=== PATIENT | female | born 1935 | race Caucasian/White ===

== ENCOUNTER → 2017-11-26 | Outpatient (CLI) | payer MEDICARE ==
--- NOTE | 2017-11-28 14:10 | PE ---
Nuclear medicine PET/CT HISTORY: Solitary pulmonary nodule, initial Patient received 10.4 mCi F-18 FDG intravenously in delayed scanning was performed from the skull bas e to the mid thighs. Localization and attenuation correction CT scan was also performed. Neck and chest: There is no evident cervical adenopathy. Extensive emphysematous changes are present within the lungs. Left upper lobe spiculated lung mass shows extension towards the left hilum and jesus sures approximately 3.3 cm. There is associated hypermetabolic uptake, SUV is 29. No pleural or peric ardial effusion. Pulmonary artery is dilated, consider pulmonary artery hypertension. There are coron carlito calcifications present. No mediastinal, axillary, or hilar adenopathy. Ascending aorta is dilated at 3.5 cm. Abdomen pelvis: There is no evident adrenal mass. No suspicious hypermetabolic uptake. Low dense focu s within the liver may represent cysts and measures approximately 2.3 cm. No retroperitoneal adenopat hy. Abdominal aortic aneurysm measures 4.5 cm. Osseous structures: Degenerative disc changes, facet arthropathy in the lower lumbar spine. There is 6 anterior rib on the left showing mild uptake, SUV 3.2, possible prior trauma. Arthropathy noted wit hin the shoulders. 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 Correlate for pulmonary a rtery hypertension. Aortic aneurysm as described abdomen, descending aortic measurement as above. Add itional findings above.
== END | disposition home or self-care (01) ==
LOC: RADPETMAIN 12:03
PROVIDERS: ATTEND Internal Medicine Critical Care Medicine
DX: I71.4 Abdominal aortic aneurysm, without rupture (principal)
CPT/HCPCS: 78815; A9552

== ENCOUNTER 2018-07-16 23:08 | Observation (INO) | payer MEDICARE, OTHER ==
[2018-07-16] MEDS ORDERED: IPRATROPIUM-ALBUTEROL 3 ML NEB INHALATION STA (23:32)
--- NOTE | 2018-07-16 23:32 | ED ---
SOB HPI - General Stated Complaint: coughing up blood Time Seen by Provider: 07/16/18 23:08 Source: patient, RN/MD, EMS, RN notes reviewed Mode of arrival: EMS - History of Present Illness Initial Comments: This is a 83-year-old female history of lung lung cancer emphysema among other medical problems who started having hemoptysis today. She's been coughing up dark and some bright red blood is unknown today. She has exertional dyspnea but is normally a 4 L of oxygen anyway. She was seen at [facility] and transferred here for evaluation. She has any fevers chills or sweats she is on anticoagulation for atrial fibrillation. She has a follow-up a shot glass earlier this afternoon. No chest or abdominal pain MD Complaint: shortness of breath, cough - Related Data Home Medications Medication Instructions Recorded Confirmed Albuterol Inhaler [Ventolin Hfa 2 puff INHALATION Q6H PRN 09/01/15 09/01/15 Inhaler] Enalapril [Vasotec] 20 mg PO DAILY 09/01/15 09/01/15 LORazepam [Ativan] 0.25 mg PO HS PRN 09/01/15 09/01/15 Levothyroxine Sodium [Synthroid] 75 mcg PO DAILY 09/01/15 09/01/15 Loratadine [Claritin] 10 mg PO HS 09/02/15 09/02/15 Previous Rx's Medication Instructions Recorded Acetaminophen Tab [Tylenol] 650 mg PO Q6HR PRN #0 tab 09/06/15 Albuterol Nebulized (Conc) 2.5 mg INHALATION QID #120 neb 09/06/15 [Ventolin Nebulized (Conc)] Budesonide/Formoterol Fumarate 1 puff IH BID #1 hfa.aer.ad 09/06/15 [Symbicort 160-4.5 Mcg Inhaler] Edoxaban Tosylate [Savaysa] 30 mg PO DAILY #0 tablet 09/06/15 Flecainide [Tambocor] 50 mg PO Q12H #60 tab 09/06/15 Ipratropium Nebulized [Atrovent 0.5 mg INHALATION RT-QID #120 nebu 09/06/15 Nebulized 0.2 MG/ML] Levofloxacin [Levaquin] 500 mg PO Q24H #7 tab 09/06/15 predniSONE 10 mg PO DIRECTED #30 tab 09/06/15 Allergies Allergy/AdvReac Type Severity Reaction Status Date / Time levofloxacin [From Levaquin] Allergy Itching Verified 07/16/18 23:25 Review of Systems ROS Statement: Those systems with pertinent positive or pertinent negative responses have been documented in the HPI. ROS Other: All systems not noted in ROS Statement are negative. Past Medical History Past Medical History: COPD, Hypertension, Osteoarthritis (OA) Additional Past Medical History / Comment(s): Hyperlipidemia, emphaseama, hypothyroid,glaucoma History of Any Multi-Drug Resistant Organisms: None Reported Additional Past Surgical History / Comment(s): bilat cataract repair Past Anesthesia/Blood Transfusion Reactions: No Reported Reaction Past Psychological History: No Psychological Hx Reported Smoking Status: Former smoker - Past Family History Father Family Medical History: Liver Disease Mother Family Medical History: Coronary Artery Disease (CAD) General Exam - General Exam Comments Initial Comments: This is a well-developed asthenic appearing awake alert oriented 3 female General appearance: alert, in no apparent distress Head exam: Present: atraumatic, normocephalic, normal inspection Eye exam: Present: normal appearance, PERRL, EOMI. Absent: scleral icterus, conjunctival injection, periorbital swelling ENT exam: Present: normal exam, mucous membranes moist Neck exam: Present: normal inspection. Absent: tenderness, meningismus, lymphadenopathy Respiratory exam: Present: wheezes, decreased breath sounds. Absent: respiratory distress, rales, rhonchi, stridor Cardiovascular Exam: Present: regular rate, normal rhythm, normal heart sounds. Absent: systolic murmur, diastolic murmur, rubs, gallop, clicks GI/Abdominal exam: Present: soft, normal bowel sounds. Absent: distended, tenderness, guarding, rebound, rigid Extremities exam: Present: normal inspection, full ROM, normal capillary refill. Absent: tenderness, pedal edema, joint swelling, calf tenderness Back exam: Present: normal inspection Neurological exam: Present: alert, oriented X3, CN II-XII intact Psychiatric exam: Present: normal affect, normal mood Skin exam: Present: warm, dry, intact, normal color. Absent: rash Course Vital Signs 07/16/18 23:19 Temperature 97.9 F Pulse Rate 90 Respiratory 18 Rate Blood Pressure 148/74 O2 Sat by Pulse 94 L Oximetry Medical Decision Making - Medical Decision Making I did discuss the findings with Dr. Montaño who was in the emergency department patient will be admitted with consultation to Dr. Field. Patient currently hemodynamically stable. - Radiology Data Radiology results: image reviewed (I did review the CAT scan was supplied by EMS patient does demonstrate a left lung mass is noted please see complete report) Disposition Clinical Impression: Hemoptysis, Acute exacerbation of emphysema, Lung cancer Disposition: ADMITTED IP TO THIS [facility] Condition: Serious Referrals: Richie Crow DO [Primary Care Provider] - 1-2 days
[2018-07-16] MEDS ORDERED: ACETAMINOPHEN TAB 325 MG TAB PO PRN (23:45)
[2018-07-17] MEDS: SODIUM CHLORIDE 0.9% 1,000 ML IV SCH ×2 (00:17→11:39)
[2018-07-17] MEDS: methylPREDNISolone SOD SUCCI 125 MG/2 ML VIAL IV SCH ×4 (00:17→20:22)
[2018-07-17] MEDS: IPRATROPIUM-ALBUTEROL 3 ML NEB INHALATION SCH ×7 (00:55→23:06)
[2018-07-17] MEDS ORDERED: LORazepam 0.5 MG TAB PO PRN (01:00)
[2018-07-17] MEDS: FLECAINIDE 50 MG TAB PO SCH ×2 (01:29→23:51)
[2018-07-17] MEDS: LISINOPRIL 20 MG TAB PO SCH (09:42)
[2018-07-17] MEDS ORDERED: HYDROcodone/APAP 5-325MG 1 EACH TAB PO PRN (09:59)
--- NOTE | 2018-07-17 10:49 | HP ---
HISTORY AND PHYSICAL DATE OF SERVICE: 07/16/2018 CHIEF COMPLAINT: Hemoptysis. HISTORY OF PRESENT ILLNESS: This 83-year-old woman with a past medical history of multiple medical problems including COPD, hypertension, DJD, hyperlipidemia, history of hypothyroidism, glaucoma was being followed by Dr. Field and Dr. Neil also. The patient was found to have left-sided lung mass. Apparently patient was complaining of hemoptysis multiple episodes. Patient came to [facility] and was admitted for further evaluation and treatment. There is no history of fever, rigors or chills. No history of headache, loss of consciousness, seizures at this time. The patient was seen in [facility] and referred to [facility]. PAST MEDICAL HISTORY: History of COPD, hypertension, DJD, history of hyperlipidemia. MEDICATIONS: Medications prior to admission home medications are: 1. Prednisone 10 mg p.r.n. 2. Claritin 10 mg q.h.s. 3. Synthroid 75 mcg daily. 5. Ativan 0.25 mg q.h.s. p.r.n. 6. Atrovent 0.5 q.i.d. 7. Tambocor 50 mg b.i.d. 8. Vasotec 20 mg p.o. daily. 9. Savaysa 30 mg p.o. daily. 10.Symbicort one p.o. b.i.d. 11.Ventolin 2.5 q.i.d. 13.Tylenol p.r.n. ALLERGIES: Allergies are LEVAQUIN. FAMILY HISTORY: Liver disease in the family. SOCIAL HISTORY: Previous history of smoking. No history of current smoking or alcohol intake. REVIEW OF SYSTEMS: ENT: No diminished hearing or diminished vision. CARDIOVASCULAR SYSTEM: As mentioned earlier. RESPIRATORY SYSTEM: As mentioned earlier. GI: No nausea. : No dysuria. NERVOUS SYSTEM: No numbness or weakness. ALLERGY/IMMUNOLOGY: No history of asthma, hayfever. MUSCULOSKELETAL: As mentioned earlier. HEMATOLOGY/ONCOLOGY: As mentioned earlier. ENDOCRINE: As mentioned earlier. CONSTITUTIONAL: As mentioned earlier. DERMATOLOGY: Negative. RHEUMATOLOGY: Negative. PSYCHIATRY; As mentioned earlier. PHYSICAL EXAMINATION: The patient is alert and oriented x3. Pulse is 75, blood pressure 137/88, respiration 20, temperature 98.1, pulse ox 96% on 4 L. HEENT: Conjunctivae normal. Oral mucosa moist. Neck is no jugular venous distention. No carotid bruit. No lymph node enlargement. CARDIOVASCULAR: S1, S2 muffled. RESPIRATORY; Breath sounds are diminished at the bases. A few scattered rhonchi and crackles. ABDOMEN: Soft, nontender. No mass palpable. LEGS: No edema. No swelling. NERVOUS SYSTEM: Higher functions as mentioned earlier. Moves all 4 limbs. No focal motor or sensory deficits. LYMPHATICS: No lymphadenopathy of the neck, axillae or groin. SKIN: No ulcer, rash or bleeding. JOINTS: No active deforming arthropathy. LABS: Current labs are awaited. ASSESSMENT: 1. Hemoptysis for evaluation possible from left-sided lung cancer. 2. Chronic obstructive pulmonary disease. 3. Hypertension. 4. Degenerative joint disease. 5. Hyperlipidemia. 6. Emphysema. 7. Hypothyroidism. 8. Glaucoma. 9. History of paroxysmal atrial fibrillation. 10.History of chronic obstructive pulmonary disease. 11.History of bilateral pulmonary embolism in 2000. RECOMMENDATIONS AND DISCUSSION: In this 83-year-old woman who presented with multiple complex medical issues, we will monitor the patient closely, symptomatic treatment. Otherwise, we will closely monitor with Dr. Neil, bronchodilators, steroids have been initiated. Guarded prognosis because of multiple complex medical issues. Further recommendations to follow. See orders for further details. Home medications were resumed. MMODL / IJN: [id number] / MTDD
[2018-07-17 12:58] LABS: Basophils % (A) 0 %; Eosinophils % (A) 0 %; HCT 37.5 % (34.0-46.0); HGB 11.3 gm/dL (11.4-16.0); Hypochromasia Marked; Lymphocytes # (A) 0.4 k/uL (1.0-4.8); Lymphocytes % (A) 3 %; MCH 30.9 pg (25.0-35.0); MCHC 30.2 g/dL (31.0-37.0); MCV 102.5 fL (80.0-100.0); Macrocytosis Slight; Monocytes # (A) 0.2 k/uL (0-1.0); Monocytes % (A) 2 %; Neutrophils # (A) 10.4 k/uL (1.3-7.7); Neutrophils % (A) 95 %; Platelet Count 200 k/uL (150-450); RBC 3.66 m/uL (3.80-5.40)
[2018-07-17 13:08] LABS: Anion Gap 5 mmol/L; Blood Urea Nitrogen 26 mg/dL (7-17); Calcium 9.3 mg/dL (8.4-10.2); Chloride 97 mmol/L (98-107); Glucose 165 mg/dL (74-99); Potassium 4.2 mmol/L (3.5-5.1); Sodium 142 mmol/L (137-145)
[2018-07-17 13:20] LABS: Carbon Dioxide 40 mmol/L (22-30)
--- NOTE | 2018-07-17 15:10 | P.CNPUL ---
History of Present Illness Consult date: 07/17/18 Requesting physician: Carolynn Montaño Reason for consult: abnormal CXR/CT, other Chief complaint: Hemoptysis, severe COPD, left upper lobe lung mass History of present illness: This is a 83-year-old off white female patient of Dr. Crow, with past medical history of severe COPD, emphysema, left upper lobe lung mass, who was transferred from [facility] to the [facility] on 07/16/2018 with complaints of hemoptysis that started on Tuesday. Patient has been coughing up dark and some bright red blood. Was having some increased exertional dyspnea. Patient denied any fever or chills, denied sweats, she was having some phlegm production mixed in with blood in her sputum. Patient is on Eliquis for history of atrial fibrillation. Denied any chest pain or abdominal pain, no nausea or vomiting. Patient follows with Dr. Terrell in the pulmonary clinic for her history of severe COPD, baseline FEV1 of 0.89 L or 39% of predicted, and diffusion abnormality of 26%. Patient has history of hypoxemic respiratory failure related to COPD. Patient was hospitalized in October 2017 at one of the [facility] hospitalist for 3 days for COPD exacerbation. Computed tomography scan was done and revealed 1.4 cm nodule in the left upper lobe. Patient had a PET scan that was highly suspicious for bronchogenic carcinoma in the left upper lobe, this showed a left upper lobe spiculated lung mass with extension towards the left hilum measuring approximately 3.3 cm with associated hypermetabolic uptake with SUV of 29. No mediastinal, axillary or hilar adenopathy, no suspicious hypermetabolic uptake within the abdomen or pelvis. No significant uptake in the osseous structures. Because of her poor lung function patient was not deemed to be a good candidate for navigational bronchoscopy and general anesthesia. Possibility of external beam radiation without the tissue diagnosis was discussed with her, and patient decided not to pursue any treatment, related to poor lung function and severe limitation of her functional ability on the day today basis. Other medical history positive for hypertension, osteoarthritis, hypothyroidism, former smoking history. CT angios of the chest completed at an outside facility showed the left upper lobe mass that has significantly increased in size, no evidence of pulmonary embolism , no evidence of pulmonary infiltrates. Vital signs are stable, she is on 4 L per nasal cannula and this is what she wears at home her pulse ox is 97% hemodynamically stable, lab work has been reviewed, showed white blood cell count of 11.0, hemoglobin of 11.3, sodium is 142, potassium is 4.2, chloride is 97, CO2 is 40, BUN is 26 creatinine 0.66. She denies any fever, rigors or chills. Not significantly bronchospastic on today's exam, a few scattered rhonchi and crackles. Patient is calm and comfortable, resting in bed. We were asked to see this patient in evaluation for hemoptysis. Review of Systems All systems: negative Constitutional: Denies chills, Denies fever Eyes: denies blurred vision, denies pain Ears, nose, mouth and throat: Denies headache, Denies sore throat Cardiovascular: Denies chest pain, Denies shortness of breath Respiratory: Reports hemoptysis, Denies cough Gastrointestinal: Denies abdominal pain, Denies diarrhea, Denies nausea, Denies vomiting Genitourinary: Denies dysuria, Denies hematuria Musculoskeletal: Denies myalgias Integumentary: Denies pruritus, Denies rash Neurological: Denies numbness, Denies weakness Psychiatric: Denies anxiety, Denies depression Endocrine: Denies fatigue, Denies weight change Past Medical History Past Medical History: COPD, Hypertension, Osteoarthritis (OA) Additional Past Medical History / Comment(s): Hyperlipidemia, emphaseama, hypothyroid,glaucoma History of Any Multi-Drug Resistant Organisms: None Reported Additional Past Surgical History / Comment(s): bilat cataract repair Past Anesthesia/Blood Transfusion Reactions: No Reported Reaction Past Psychological History: No Psychological Hx Reported Smoking Status: Former smoker Past Alcohol Use History: None Reported Past Drug Use History: None Reported - Past Family History Father Family Medical History: Liver Disease Mother Family Medical History: Coronary Artery Disease (CAD) Medications and Allergies Home Medications Medication Instructions Recorded Confirmed Type Albuterol Inhaler [Ventolin Hfa 2 puff INHALATION RT-Q6H PRN 09/01/15 07/17/18 History Inhaler] Flecainide [Tambocor] 50 mg PO Q12H #60 tab 09/06/15 07/17/18 Rx Albuterol Nebulized [Ventolin 2.5 mg INHALATION RT-TID 07/17/18 07/17/18 History Nebulized] Apixaban [Eliquis] 5 mg PO BID 07/17/18 07/17/18 History Bumetanide [Bumex] 1 mg PO BID 07/17/18 07/17/18 History Enalapril [Vasotec] 10 mg PO DAILY 07/17/18 07/17/18 History Levothyroxine Sodium [Synthroid] 88 mcg PO DAILY 07/17/18 07/17/18 History predniSONE 5 mg PO DAILY 07/17/18 07/17/18 History Allergies Allergy/AdvReac Type Severity Reaction Status Date / Time levofloxacin [From Levaquin] Allergy Itching Verified 07/17/18 10:13 Physical Exam Vitals: Vital Signs Temp Pulse Pulse Resp BP BP Pulse Ox 07/17/18 12:03 97.6 F 79 18 131/78 97 07/17/18 12:02 80 07/17/18 11:49 76 07/17/18 08:45 80 07/17/18 08:32 72 98 07/17/18 05:00 98.1 F 75 20 137/88 96 07/17/18 03:35 18 07/17/18 03:31 92 07/17/18 03:22 88 07/17/18 00:53 98.2 F 85 20 122/75 96 07/17/18 00:34 98.0 F 88 18 140/82 96 07/17/18 00:33 18 07/17/18 00:28 94 07/17/18 00:14 90 07/16/18 23:19 97.9 F 90 18 148/74 94 L Intake and Output 07/16/18 07/17/18 07/17/18 22:59 06:59 14:59 Intake Total 660 Balance 660 Intake: Intake, IV Titration 240 Amount Sodium Chloride 0.9% 1, 240 000 ml @ 80 mls/hr IV . [id number] [facility] Rx#:[id number] Oral 420 Other: Voiding Method Bedside Commode # Voids 1 Weight 100.244 kg GENERAL EXAM: Alert, pleasant, 83-year-old white female on 4 L per nasal cannula with a pulse ox of 97% comfortable in no apparent distress. HEAD: Normocephalic/atraumatic. EYES: Normal reaction of pupils, equal size. Conjunctiva pink, sclera white. NOSE: Clear with pink turbinates. THROAT: No erythema or exudates. NECK: No masses, no JVD, no thyroid enlargement, no adenopathy. CHEST: No chest wall deformity. Symmetrical expansion. LUNGS: Equal air entry with diminished breath sounds, a few scattered rhonchi, no significant wheezes. CVS: Regular rate and rhythm, normal S1 and S2, no gallops, no murmurs, no rubs ABDOMEN: Soft, nontender. No hepatosplenomegaly, normal bowel sounds, no guarding or rigidity. EXTREMITIES: No clubbing, no edema, no cyanosis, 2+ pulses and upper and lower extremities. MUSCULOSKELETAL: Muscle strength and tone normal. SPINE: No scoliosis or deformity SKIN: No rashes CENTRAL NERVOUS SYSTEM: Alert and oriented -3. No focal deficits, tone is normal in all 4 extremities. PSYCHIATRIC: Alert and oriented -3. Appropriate affect. Intact judgment and insight. Results - Laboratory Findings CBC and BMP: 07/17/18 12:30 07/17/18 12:30 Abnormal lab findings: Abnormal Labs 07/17/18 07/17/18 12:30 12:30 WBC 11.0 H RBC 3.66 L Hgb 11.3 L MCV 102.5 H MCHC 30.2 L Neutrophils # 10.4 H Lymphocytes # 0.4 L Chloride 97 L Carbon Dioxide 40 H BUN 26 H Glucose 165 H - Diagnostic Findings CT scan - chest: report reviewed, image reviewed Assessment and Plan Plan: Assessment: #1. Hemoptysis related to oral anticoagulation and left upper lung mass, suspicious for bronchogenic carcinoma. The mass was first found back in October 2017 during a hospitalization for COPD at an outside facility. PET scan on 11/2017 showed left upper lobe spiculated lesion with extension towards the left hilum measuring 3.3 cm hypermetabolic uptake with SUV of 29%, there was no other suspicious hypermetabolic uptake in the abdomen, pelvis or the osseous structures. A tissue diagnosis was not obtained related to patient being a poor candidate for navigational bronchoscopy general anesthesia, or fine-needle aspirate, was related to patient's poor lung function. Patient and her family decided not to medical treatment for the left upper lobe mass. CTA chest was completed at [facility] in 07/16/2018 was negative for any discrete pulmonary embolus, showed left upper lobe lung mass consistent with reported malignancy which seems to have significantly increased in size, no pneumothorax or pleural effusions were noted, no pulmonary infiltrates. #2. Chronic hypoxemic respiratory failure related to severe COPD, normally wears 4 L of oxygen at home 2 #3. Stage III COPD, with a baseline FEV1 of 0.89 L or 39% of predicted #4. Previous episodes of pneumonia #5. Hypertension #6. Hypothyroidism #7. Abdominal aortic aneurysm #8. Chronic atrial fibrillation on Eliquis #9. Osteoarthritis #10. Former smoker Plan: We'll continue holding Eliquis. Patient's COPD is stable, no further episodes of hemoptysis today, no worsening shortness of breath, no chest pain. We did review his CT angios of the chest completed at the outside facility and compared it to the previous PET scan done in October 2017 and it does appear that the left upper lobe mass has increased in size, there was no evidence of pulmonary embolus, no pulmonary infiltrates. Patient follows with Dr. Field, and the family and the patient has opted to not pursue any treatment including stereotactic radiation for the left upper lobe mass, in view of poor lung function. continue nebulized bronchodilators. Patient has no fever or chills, no significant leukocytosis, not significantly congested. There is no further episodes of hemoptysis, and patient remains stable she can be considered for discharge home today or tomorrow I performed a history & physical examination of the patient and discussed their management with my nurse practitioner, Jade Cueto. I reviewed the nurse practitioner's note and agree with the documented findings and plan of care. Lung sounds are positive for diminished sounds with a few scattered rhonchi. The findings and the impression was discussed with the patient. I attest to the documentation by the nurse practitioner. Time with Patient: Greater than 30
--- NOTE | 2018-07-17 19:54 | PN ---
PROGRESS NOTE DATE OF SERVICE: 07/17/2018 This 83-year-old woman was admitted with hemoptysis, also has history of lung cancer, for which workup was deferred because of the patient's other multiple complex medical issues, at this time. The patient is being treated with bronchodilators and steroids. No chest pain. No palpitations. No fever. Hemoptysis is decreasing at this time. EXAM: Alert and oriented x2. Pulse 79. Blood pressure 131/70, respiration 18, temperature 97.6, pulse ox 97% on 4 L. HEENT is conjunctivae normal. Neck is no jugular venous distention. Cardiovascular: S1, S2 muffled. RESPIRATORY: Breath sounds diminished in the bases. Bilateral scattered rhonchi and crackles. Abdomen is soft, nontender. Legs are no edema, no swelling. LABS: WBC 11, hemoglobin 11.3, MCV 102. ASSESSMENT: 1. Hemoptysis for evaluation possibly from left-sided lung cancer. 2. Chronic obstructive pulmonary disease. 3. Hypertension. 4. Anemia, blood loss anemia. 5. Degenerative joint disease. 6. Hyperlipidemia. 7. Emphysema. 8. Hypothyroidism. 9. Glaucoma. 10.Paroxysmal atrial fibrillation. 11.History of chronic obstructive pulmonary disease. 12.History of bilateral pulmonary embolism in 2000. RECOMMENDATIONS AND DISCUSSION: I recommend to continue current medication, continue to monitor. Symptomatic treatment. Otherwise, the patient has stage III COPD. The patient has been having outpatient workup including PET scans. The patient is thought to be a poor candidate for even bronchoscopy at this time. The most recent CTA was negative for pulmonary embolism. Conservative line of management will be continued. Nebulized bronchodilators continue. The prognosis guarded. Further recommendations to follow. Closely follow with Pulmonary. MMODL / IJN: [id number] /
[2018-07-17] MEDS ORDERED: LORATADINE 10 MG TAB PO SCH (21:00)
[2018-07-18] MEDS: methylPREDNISolone SOD SUCCI 125 MG/2 ML VIAL IV SCH ×3 (00:20→13:10)
[2018-07-18] MEDS: SODIUM CHLORIDE 0.9% 1,000 ML IV SCH ×2 (02:51→15:07)
[2018-07-18] MEDS: IPRATROPIUM-ALBUTEROL 3 ML NEB INHALATION SCH ×4 (03:04→16:16)
[2018-07-18] MEDS ORDERED: PANTOPRAZOLE 40 MG TABLET PO SCH (07:30)
[2018-07-18 07:49] VITALS: RESP 16
[2018-07-18] MEDS: LISINOPRIL 20 MG TAB PO SCH (09:04)
[2018-07-18] MEDS ORDERED: LEVOTHYROXINE 88 MCG TAB PO SCH (09:45)
[2018-07-18 10:09] LABS: Basophils % (A) 0 %; Eosinophils % (A) 0 %; HCT 35.3 % (34.0-46.0); HGB 10.5 gm/dL (11.4-16.0); Hypochromasia Marked; Lymphocytes # (A) 0.3 k/uL (1.0-4.8); Lymphocytes % (A) 3 %; MCH 30.4 pg (25.0-35.0); MCHC 29.7 g/dL (31.0-37.0); MCV 102.6 fL (80.0-100.0); Macrocytosis Slight; Mean Platelet Volume 8.1; Monocytes # (A) 0.1 k/uL (0-1.0); Monocytes % (A) 1 %; Neutrophils # (A) 10.8 k/uL (1.3-7.7); Neutrophils % (A) 96 %; Platelet Count 203 k/uL (150-450); RBC 3.44 m/uL (3.80-5.40); RDW 13.3 % (11.5-15.5); WBC 11.3 k/uL (3.8-10.6)
[2018-07-18 10:28] LABS: Blood Urea Nitrogen 27 mg/dL (7-17); Calcium 9.2 mg/dL (8.4-10.2); Chloride 101 mmol/L (98-107); Glucose 188 mg/dL (74-99); Potassium 4.7 mmol/L (3.5-5.1); Sodium 142 mmol/L (137-145)
[2018-07-18 10:34] LABS: Anion Gap 0 mmol/L
[2018-07-18 10:45] LABS: Carbon Dioxide 41 mmol/L (22-30)
[2018-07-18] MEDS: FLECAINIDE 50 MG TAB PO SCH (10:49)
--- NOTE | 2018-07-18 11:40 | P.PN ---
Subjective Progress Note Date: 07/18/18 Principal diagnosis: Hemoptysis, severe COPD, left upper lobe lung mass This is a 83-year-old off white female patient of Dr. Crow, with past medical history of severe COPD, emphysema, left upper lobe lung mass, who was transferred from [facility] to the [facility] on 07/16/2018 with complaints of hemoptysis that started on Tuesday. Patient has been coughing up dark and some bright red blood. Was having some increased exertional dyspnea. Patient denied any fever or chills, denied sweats, she was having some phlegm production mixed in with blood in her sputum. Patient is on Eliquis for history of atrial fibrillation. Denied any chest pain or abdominal pain, no nausea or vomiting. Patient follows with Dr. Terrell in the pulmonary clinic for her history of severe COPD, baseline FEV1 of 0.89 L or 39% of predicted, and diffusion abnormality of 26%. Patient has history of hypoxemic respiratory failure related to COPD. Patient was hospitalized in October 2017 at one of the [facility] hospitalist for 3 days for COPD exacerbation. Computed tomography scan was done and revealed 1.4 cm nodule in the left upper lobe. Patient had a PET scan that was highly suspicious for bronchogenic carcinoma in the left upper lobe, this showed a left upper lobe spiculated lung mass with extension towards the left hilum measuring approximately 3.3 cm with associated hypermetabolic uptake with SUV of 29. No mediastinal, axillary or hilar adenopathy, no suspicious hypermetabolic uptake within the abdomen or pelvis. No significant uptake in the osseous structures. Because of her poor lung function patient was not deemed to be a good candidate for navigational bronchoscopy and general anesthesia. Possibility of external beam radiation without the tissue diagnosis was discussed with her, and patient decided not to pursue any treatment, related to poor lung function and severe limitation of her functional ability on the day today basis. Other medical history positive for hypertension, osteoarthritis, hypothyroidism, former smoking history. CT angios of the chest completed at an outside facility showed the left upper lobe mass that has significantly increased in size, no evidence of pulmonary embolism , no evidence of pulmonary infiltrates. Vital signs are stable, she is on 4 L per nasal cannula and this is what she wears at home her pulse ox is 97% hemodynamically stable, lab work has been reviewed, showed white blood cell count of 11.0, hemoglobin of 11.3, sodium is 142, potassium is 4.2, chloride is 97, CO2 is 40, BUN is 26 creatinine 0.66. She denies any fever, rigors or chills. Not significantly bronchospastic on today's exam, a few scattered rhonchi and crackles. Patient is calm and comfortable, resting in bed. We were asked to see this patient in evaluation for hemoptysis. The patient is seen today 07/18/2018 in follow-up on the regular medical floor. She is awake and alert in no acute distress. She denies any shortness of breath, cough or congestion. No further hemoptysis. She is maintaining good O2 saturations up to 100% on 4 L/m per nasal cannula. She's been afebrile. Hemodynamically stable. White count 11.3. Hemoglobin 10.5. Creatinine 0.63. She has been maintained on DuoNeb inhalations, IV Solu-Medrol, ceftriaxone. Her Eliquis is on hold. Objective - Vital Signs Vital signs: Vital Signs Temp 97.7 F 07/18/18 07:47 Pulse 72 07/18/18 07:55 Resp 16 07/18/18 07:47 BP 134/84 07/18/18 07:47 Pulse Ox 99 07/18/18 07:47 Intake & Output 07/17/18 07/18/18 07/18/18 18:59 06:59 18:59 Intake Total 1300 Output Total 400 Balance 900 Intake: Intake, IV Titration 640 Amount Sodium Chloride 0.9% 1, 640 000 ml @ 80 mls/hr IV . [id number] [facility] Rx#:[id number] Oral 660 Output: Urine 400 Other: Voiding Method Bedside Commode Bedside Commode Bedside Commode # Voids 2 1 - Exam GENERAL EXAM: Alert, active, comfortable in no apparent distress. On 4 L nasal cannula. HEAD: Normocephalic. EYES: Normal reaction of pupils, equal size. NOSE: Clear with pink turbinates. THROAT: No erythema or exudates. NECK: No masses, no JVD. CHEST: No chest wall deformity. LUNGS: Equal air entry with few scattered rhonchi, end expiratory wheeze.. CVS: S1 and S2 normal with no audible murmur, regular rhythm. ABDOMEN: No hepatosplenomegaly, normal bowel sounds, no guarding or rigidity. SPINE: No scoliosis or deformity SKIN: No rashes CENTRAL NERVOUS SYSTEM: No focal deficits, tone is normal in all 4 extremities. EXTREMITIES: There is no peripheral edema. No clubbing, no cyanosis. Peripheral pulses are intact. - Labs CBC & Chem 7: 07/18/18 09:21 07/18/18 09:21 Labs: Abnormal Lab Results - Last 24 Hours (Table) 07/17/18 07/17/18 07/18/18 Range/Units 12:30 12:30 09:21 WBC 11.0 H 11.3 H (3.8-10.6) k/uL RBC 3.66 L 3.44 L (3.80-5.40) m/uL Hgb 11.3 L 10.5 L (11.4-16.0) gm/dL MCV 102.5 H 102.6 H (80.0-100.0) fL MCHC 30.2 L 29.7 L (31.0-37.0) g/dL Neutrophils # 10.4 H 10.8 H (1.3-7.7) k/uL Lymphocytes # 0.4 L 0.3 L (1.0-4.8) k/uL Chloride 97 L (98-107) mmol/L Carbon Dioxide 40 H (22-30) mmol/L BUN 26 H (7-17) mg/dL Glucose 165 H (74-99) mg/dL 07/18/18 Range/Units 09:21 WBC (3.8-10.6) k/uL RBC (3.80-5.40) m/uL Hgb (11.4-16.0) gm/dL MCV (80.0-100.0) fL MCHC (31.0-37.0) g/dL Neutrophils # (1.3-7.7) k/uL Lymphocytes # (1.0-4.8) k/uL Chloride (98-107) mmol/L Carbon Dioxide 41 H* (22-30) mmol/L BUN 27 H (7-17) mg/dL Glucose 188 H (74-99) mg/dL Assessment and Plan Assessment: Assessment: #1. Hemoptysis related to oral anticoagulation and left upper lung mass, suspicious for bronchogenic carcinoma. The mass was first found back in October 2017 during a hospitalization for COPD at an outside facility. PET scan on 11/2017 showed left upper lobe spiculated lesion with extension towards the left hilum measuring 3.3 cm hypermetabolic uptake with SUV of 29%, there was no other suspicious hypermetabolic uptake in the abdomen, pelvis or the osseous structures. A tissue diagnosis was not obtained related to patient being a poor candidate for navigational bronchoscopy general anesthesia, or fine-needle aspirate, was related to patient's poor lung function. Patient and her family decided not to medical treatment for the left upper lobe mass. CTA chest was completed at [facility] in 07/16/2018 was negative for any discrete pulmonary embolus, showed left upper lobe lung mass consistent with reported malignancy which seems to have significantly increased in size, no pneumothorax or pleural effusions were noted, no pulmonary infiltrates. #2. Chronic hypoxemic respiratory failure related to severe COPD, normally wears 4 L of oxygen at home #3. Stage III COPD, with a baseline FEV1 of 0.89 L or 39% of predicted #4. Previous episodes of pneumonia #5. Hypertension #6. Hypothyroidism #7. Abdominal aortic aneurysm #8. Chronic atrial fibrillation on Eliquis #9. Osteoarthritis #10. Former smoker Plan: The patient was seen and evaluated by Dr. Neil. She has not had any further hemoptysis. She is cleared for discharge from the pulmonary standpoint. Continue to hold the Eliquis for now. Follow up with Dr. Dr. Field in our office. Complete a course of antibiotics. Complete a prednisone taper. Continue her home oxygen and bronchodilators. She is encouraged to call sooner with any recurrence of hemoptysis or other questions or concerns. I, the cosigning physician, performed a history & physical examination of the patient. Lungs sounds with few end expiratory wheeze, diminished. Maintaining good O2 saturations in the 90s on 4L nc. I discussed the assessment and plan of care with my nurse practitioner, Radha Bailey. I attest to the above note as dictated by her.
[2018-07-18 14:43] VITALS: BP 165/84; TEMP 97.6
[2018-07-18 16:30] VITALS: PULSE 68
--- NOTE | 2018-07-19 23:29 | P.DS ---
Providers Date of admission: 07/16/18 23:43 Expected date of discharge: 07/18/18 Attending physician: Carolynn Rico Consults: 07/16/18 23:43 Consult Physician Routine Consulting Provider: Devan Field Reason/Comments: Hemoptysis, lung mass, COPD Do you want consulting provider notified?: Yes Primary care physician: Richie [facility] Course: Final Diagnoses: - Hemoptysis related to oral anticoagulation and left upper lung mass, suspicious for bronchogenic carcinoma. The mass was first found back in October 2017 during a hospitalization for COPD at an outside facility. PET scan on 11/2017 showed left upper lobe spiculated lesion with extension towards the left hilum measuring 3.3 cm hypermetabolic uptake with SUV of 29%, there was no other suspicious hypermetabolic uptake in the abdomen, pelvis or the osseous structures. A tissue diagnosis was not obtained related to patient being a poor candidate for navigational bronchoscopy general anesthesia, or fine-needle aspirate, was related to patient's poor lung function. Patient and her family decided not to medical treatment for the left upper lobe mass. CTA chest was completed at [facility] in 07/16/2018 was negative for any discrete pulmonary embolus, showed left upper lobe lung mass consistent with reported malignancy which seems to have significantly increased in size, no pneumothorax or pleural effusions were noted, no pulmonary infiltrates. -Chronic hypoxic respiratory failure secondary to COPD, wears 4 L of nasal cannula O2 at home. -COPD, stage III -Hypertension -Anemia, blood loss -Degenerative joint disease -Emphysema -Paroxysmal atrial fibrillation -Abdominal aortic aneurysm -Chronic atrial fibrillation -Former smoker Hospital course: This is an 83-year-old female admitted with hemoptysis, history of lung cancer. Workup deferred secondary to patient's multiple complex medical issues. Evaluated by pulmonary, poor candidate for bronchoscopy at this time. Most recent CT negative for PE .Patient has been having outpatient workup including PET scan's. Conservative treatment .Maintained on nebulized bronchodilators ,steroids. Hemoptysis subsided. Maintaining O2 sats of 100% on 4 L nasal cannula/baseline. Eliquis to remain on hold as per pulmonary, reevaluate at follow-up visit with Dr. Field. Significant clinical improvement. Cleared by pulmonary for discharge. Patient is being discharged home in a stable condition with guarded prognosis. EXAM: GENERAL: Alert and oriented 3, no acute distress. RESP: Bilateral bases diminished with scattered rhonchi, fine expiratory wheeze CV: Regular S1 and S2, no audible murmur ABD: Soft, nontender, positive bowel sounds. Neuro: No focal deficits The impression and plan of care has been dictated as directed. : I performed a history and examination of this patient, discussed the same with the dictator. I agree with the dictator's note ,documented as a scribe. Any additional findings or plans will be noted. Time taken 35 minutes Patient Condition at Discharge: Stable Plan - Discharge Summary Discharge Rx Participant: Yes New Discharge Prescriptions: New Acetaminophen Tab [Tylenol] 650 mg PO Q6HR PRN tab PRN Reason: Mild Pain Or Fever > 100.5 Loratadine [Claritin] 10 mg PO HS tab Pantoprazole [Protonix] 40 mg PO AC-BRKFST #30 tablet. predniSONE 10 mg PO DIRECTED #30 tab Cefuroxime Axetil [Ceftin] 500 mg PO BID #10 tab Continue Albuterol Inhaler [Ventolin Hfa Inhaler] 2 puff INHALATION RT-Q6H PRN PRN Reason: Shortness Of Breath Flecainide [Tambocor] 50 mg PO Q12H #60 tab Bumetanide [BUMEX] 1 mg PO BID Levothyroxine Sodium [Synthroid] 88 mcg PO DAILY Enalapril [Vasotec] 10 mg PO DAILY Albuterol Nebulized [Ventolin Nebulized] 2.5 mg INHALATION RT-TID predniSONE 5 mg PO DAILY #0 Discharge Medication List Albuterol Inhaler [Ventolin Hfa Inhaler] 2 puff INHALATION RT-Q6H PRN 09/01/15 [ History] Flecainide [Tambocor] 50 mg PO Q12H #60 tab 09/06/15 [Rx] Albuterol Nebulized [Ventolin Nebulized] 2.5 mg INHALATION RT-TID 07/17/18 [ History] Bumetanide [BUMEX] 1 mg PO BID 07/17/18 [History] Enalapril [Vasotec] 10 mg PO DAILY 07/17/18 [History] Levothyroxine Sodium [Synthroid] 88 mcg PO DAILY 07/17/18 [History] Acetaminophen Tab [Tylenol] 650 mg PO Q6HR PRN tab 07/18/18 [Rx] Cefuroxime Axetil [Ceftin] 500 mg PO BID #10 tab 07/18/18 [Rx] Loratadine [Claritin] 10 mg PO HS tab 07/18/18 [Rx] Pantoprazole [Protonix] 40 mg PO CON-BRKFST #30 tablet. 07/18/18 [Rx] predniSONE 5 mg PO DAILY #0 07/18/18 [Rx] predniSONE 10 mg PO DIRECTED #30 tab 07/18/18 [Rx] Follow up Appointment(s)/Referral(s): Devan Field DO [Doctor of Osteopathic Medicine] - 1 Week (Patient states, "I do not leave the house for Dr. Suazo." Instead she has a visiting physician that sees her at home. ) Ambulatory/Diagnostic Orders: Complete Blood Count w/diff [LAB.AMB] Time Frame: 3 Days, Location: None Selected Patient Instructions/Handouts: Cefuroxime (By mouth), Prednisone (By mouth), Pantoprazole (By mouth) Activity/Diet/Wound Care/Special Instructions: NURSE the pt is a EMS transfer home at time of d/c. Hold Kitty for now, re-eval with PCP & Dr. Field Patient to make sure to follow-up with Primary Care Physician[facility]. Message left with their office. Discharge Disposition: HOME SELF-CARE
== END 2018-07-18 17:55 | disposition home or self-care (01) ==
LOC: EC 23:08 → SUPCPDRO 23:08 → OBSVTOIN 23:43 → INTOOBSV 23:43 → 3NMEDONC 23:43 → UNDODISOB 07-18 17:55
PROVIDERS: ADMIT Hospitalist; ATTEND Hospitalist
DX: R04.2 Hemoptysis (principal); J44.9 Chronic obstructive pulmonary disease, unspecified; Z79.01 Long term (current) use of anticoagulants; D68.32 Hemorrhagic disorder due to extrinsic circulating anticoagulants; T45.515A Adverse effect of anticoagulants, initial encounter; R91.8 Other nonspecific abnormal finding of lung field; Z99.81 Dependence on supplemental oxygen; J96.11 Chronic respiratory failure with hypoxia; D50.0 Iron deficiency anemia secondary to blood loss (chronic); M19.90 Unspecified osteoarthritis, unspecified site; I71.4 Abdominal aortic aneurysm, without rupture; I48.2 Chronic atrial fibrillation; I10 Essential (primary) hypertension; H40.9 Unspecified glaucoma; E78.5 Hyperlipidemia, unspecified; E03.9 Hypothyroidism, unspecified; Z87.891 Personal history of nicotine dependence; Z87.01 Personal history of pneumonia (recurrent); Z86.711 Personal history of pulmonary embolism; Z79.890 Hormone replacement therapy; Z79.899 Other long term (current) drug therapy; Z79.51 Long term (current) use of inhaled steroids; Z88.1 Allergy status to other antibiotic agents; Z83.79 Family history of other diseases of the digestive system; Z82.49 Family history of ischemic heart disease and other diseases of the circulatory system
CPT/HCPCS: 96376 ×2; 96365; 96366; 96375; 99285; 94640 ×4; 94760 ×2; 97162; 80048 ×2; 85025 ×2; G0378 ×4; J2930 ×2; J0696 ×2